=== PATIENT | female | born 1975 | race Caucasian/White ===

== ENCOUNTER 2022-03-12 09:06 | Outpatient (CLI) | payer BC | END 2022-03-12 09:07 | disposition home or self-care (01) | LOC: BICMAMMO 09:06 | PROVIDERS: ATTEND Internal Medicine | DX: Z12.31 Encounter for screening mammogram for malignant neoplasm of breast (principal) | CPT/HCPCS: 77063; 77067 ==

== ENCOUNTER 2023-12-30 15:24 | Outpatient (CLI) | payer BC | END 2023-12-30 15:25 | disposition home or self-care (01) | LOC: BICMAMMO 15:24 | PROVIDERS: ATTEND Internal Medicine | DX: Z12.31 Encounter for screening mammogram for malignant neoplasm of breast (principal) | CPT/HCPCS: 77063; 77067 ==

== ENCOUNTER 2025-04-09 09:35 | Outpatient (CLI) | payer BC | END 2025-04-09 09:36 | disposition home or self-care (01) | LOC: BICMAMMO 09:35 | PROVIDERS: ATTEND Obstetrics & Gynecology | DX: Z13.820 Encounter for screening for osteoporosis (principal); M85.89 Other specified disorders of bone density and structure, multiple sites | CPT/HCPCS: 77080 ==